=== PATIENT | female | born 1955 | race Caucasian/White ===

== ENCOUNTER 2022-12-14 17:43 | Emergency (ER) | payer MEDICARE ==
[~2022-12-14] VITALS: Ht 162.6 cm; Wt 41.7 kg
[2022-12-14 18:06] VITALS: BP 148/71
--- NOTE | 2022-12-14 18:37 | PCM.EKG ---
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
[2022-12-14 18:51] LABS: BASOPHIL # 0.1 10^3/uL (0.0-0.1); BASOPHIL % 0.6 % (0.0-0.2); EOSINOPHIL # 0.2 10^3/uL (0.0-0.2); EOSINOPHIL % 1.9 % (0.0-5.0); LYMPHOCYTES # 1.58 10^3/uL1 (1.0-4.8); MEAN CORP HGB 21.3 pg (26-34); MONOCYTES # 0.9 10^3/uL (0.3-0.8); MONOCYTES % 8.8 % (5.0-12.0); NEUTROPHIL # 7.1 10^3/uL (1.8-7.7); NEUTROPHILS % 72.5 % (41.0-85.0); PLATELET COUNT 506 10^3/uL (150-400); RED CELL DISTRIBUTION WIDTH 20.9 % (11.5-14.5)
--- NOTE | 2022-12-14 18:52 | ER.PDOC ---
General Chief Complaint: Medical Clearance Stated Complaint: MEDICAL CLEARANCE Time seen by MD: 18:49 Source: patient Exam Limitations: no limitations History of Present Illness Initial Comments Medical clearance for inpatient psychiatric treatment for suicidal ideation. Patient had a plan yesterday but none today. This has been going on for several months. Intent: Prior thoughts of suicide Severity: moderate Associated Symptoms: Depressed, Suicidal Thoughts Allergies: Coded Allergies: Sulfa (Sulfonamide Antibiotics) (Verified Allergy, Unknown, 12/14/22) prochlorperazine (Verified Allergy, Unknown, 12/14/22) Past Medical History Medical History: thyroid disease, other Surgical History: appendectomy, back, hysterectomy Family History Significant Family History: no pertinent family hx Social History Smoking: non-smoker Alcohol Use: none Drug Use: marijuana Review of Systems Constitutional: no symptoms reported EENTM: no symptoms reported Respiratory: no symptoms reported Cardiovascular: no symptoms reported Gastrointestinal: no symptoms reported Psychiatric/Neurological: see HPI All Other Systems: Reviewed and Negative Physical Exam General Appearance: No acute distress, Alert Neck: Non-Tender, Full Range of Motion, Supple, Normal Inspection Respiratory: chest non-tender, lungs clear, normal breath sounds, no respiratory distress, no accessory muscle use Cardiovascular: Normal Peripheral Pulses, Regular Rate, Rhythm, No Edema, No Gallop, No JVD, No Murmur Gastrointestinal: Normal Bowel Sounds, No Organomegaly, No Pulsatile Mass, Non Tender, Soft Extremities: Non-Tender, Normal Range of Motion, No Evidence of Trauma, No Edema Neurological/Psychiatric: Alert, Calm, 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-XII NML as Tested, Depressed Affect Appearance/Memory/Insight: Appropriate Appearance, Appropriate Insight, Neat, No Memory Impairment Behavior/Eye Contact/Speech: Cooperative, Good Eye Contact, Normal Speech Thoughts/Hallucinations: Normal Thought Pattern, No Apparent Hallucination Skin: Normal Color, Warm/Dry Results/Orders Results/Orders Orders - FORTUNATO SRIVASTAVA MD Cbc With Auto Diff (12/14/22 18:35) Comprehensive Metabolic Panel (12/14/22 18:35) Urinalysis (12/14/22 18:35) Drug Scrn Med W Confirmation (12/14/22 18:35) Alcohol(Ml) (12/14/22 18:35) Acetaminophen(Ml) (12/14/22 18:35) Salicylate(Ml) (12/14/22 18:35) EKG (12/14/22 18:35) Potassium Chloride (Klor-Con 10) (12/14/22 21:04) Tramadol Hcl (Ultram) (12/14/22 21:11) Tramadol Hcl (Ultram) (12/14/22 21:18) Vital Signs Date Time Temp Pulse Resp B/P (MAP) Pulse Ox O2 Delivery O2 Flow Rate FiO2 12/15/22 06:50 97.9 82 20 152/77 (102) 100 Room Air* 0 21 12/15/22 05:38 98.1 83 20 152/78 (102) 100 Room Air* 0 21 12/15/22 01:41 98.1 82 22 150/76 (100) 100 Room Air* 0 21 12/14/22 22:30 98.0 100 20 139/76 (97) 97 Room Air* 0 21 12/14/22 18:06 98.0 100 22 97 12/14/22 18:06 98.0 100 22 12/14/22 18:06 98.0 100 22 148/71 (96) 97 Room Air* 0 21 Administered Medications Medications (Trade) Dose Ordered Sig/[place] Route PRN Reason Start Time Stop Time Status Last Admin Dose Admin Potassium Chloride (Klor-Con 10) 40 meq STAT STAT PO 12/14/22 21:04 12/14/22 21:05 UNV 12/14/22 21:18 40 MEQ Tramadol HCl (Ultram) 50 mg STAT STAT PO 12/14/22 21:11 12/14/22 21:12 DC 12/14/22 21:18 50 MG Laboratory Tests Test 12/14/22 00:00 12/14/22 18:46 Urine Collection Type PEDI BAG Urine Color YELLOW Urine Appearance CLOUDY Urine Bilirubin NEGATIVE (NEGATIVE) Urine Ketones NEGATIVE (NEGATIVE) Urine Specific [place] 1.015 (1.005-1.030) Urine pH 7.0 (4.5-8.0) Urine Protein 1+ (NEGATIVE) H Urine Urobilinogen 0.2 E.U./dL (0.2) Urine Nitrate NEGATIVE (NEGATIVE) Urine Leukocyte Esterase 1+ (NEGATIVE) H Urine Glucose (Auto)(UA) NEGATIVE (NEGATIVE) Urine Blood 2+ (NEGATIVE) H Urine Opiates Screen PRESUMPTIVE POSITIVE Urine Methadone Screen PRESUMPTIVE POSITIVE Urine Barbiturates Screen NEGATIVE (c/o200ng/mL) Urine Phencyclidine Screen NEGATIVE (c/o 25ng/mL) Ur Amphetamine/Methamphetamine NEGATIVE (mo9228bc/mL) Urine MDMA Screen (Ecstasy) NEGATIVE (c/o300ng/mL) Urine Benzodiazepines Screen NEGATIVE (c/o200ng/mL) Urine Cocaine Metabolite Screen NEGATIVE (c/o300ng/mL) Ur Tetrahydrocannabinol (THC) Scrn PRESUMPTIVE POSITIVE (c/o White Blood Count 9.9 10^3/uL (4.5-11.0) Red Blood Count 4.60 10^6/uL (4.00-5.20) Hemoglobin 9.8 g/dL (12.0-15.0) L Hematocrit 32.7 % (36.0-46.0) L Mean Corpuscular Volume 71.1 fL (78-100) L Mean Corpuscular Hemoglobin 21.3 pg (26-34) L Mean Corpuscular Hemoglobin Concent 30.0 g/dL (33-36.5) L Red Cell Distribution Width 20.9 % (11.5-14.5) H Platelet Count 506 10^3/uL (150-400) H Mean Platelet Volume 8.0 fL (7.8-11.0) Neutrophils (%) (Auto) 72.5 % (41.0-85.0) Lymphocytes (%) (Auto) 16.0 % (24.0-44.0) L Monocytes (%) (Auto) 8.8 % (5.0-12.0) Neutrophils # (Auto) 7.1 10^3/uL (1.8-7.7) Lymphocytes # (Auto) 1.58 10^3/uL1 (1.0-4.8) Monocytes # (Auto) 0.9 10^3/uL (0.3-0.8) H Absolute Immature Granulocyte (auto 0.02 10^3 u/L (0-2) Absolute Eosinophils (auto) 0.2 10^3/uL (0.0-0.2) Immature Granulocytes % 0.20 % (0.00-0.50) Eosinophils % 1.9 % (0.0-5.0) Basophils % 0.6 % (0.0-0.2) H Basophils # 0.1 10^3/uL (0.0-0.1) Sodium Level 138 mmol/L (132-145) Potassium Level 3.1 mmol/L (3.6-5.2) L Chloride Level 99.0 mmol/L (96-109) Carbon Dioxide Level 25.7 mmol/L (20.0-32) Anion Gap 16.4 Blood Urea Nitrogen 20 mg/dL (7-18) H Creatinine 1.62 mg/dL (0.59-1.40) H Estimated GFR () 38.1 (>/=60) Est GFR (CKD-EPI)(Non-Afr Croatian) 31.5 (>/=60) BUN/Creatinine Ratio 12.0 (10.0-20.0) Glucose Level 107 mg/dL (74-106) H Calcium Level 9.6 mg/dL (8.4-10.5) Total Bilirubin 0.2 mg/dL (0.2-1.0) Aspartate Amino Transferase (AST) 13 U/L (0-35) Alanine Aminotransferase (ALT) 12 U/L (12-78) Alkaline Phosphatase 100 U/L (50-136) Total Protein 7.9 g/dL (6.4-8.2) Albumin 3.6 g/dL (3.4-5.0) Globulin 4.3 Albumin/Globulin Ratio 0.837 Salicylates Level 6.4 mg/dL (2.8-20.0) Acetaminophen Level < 2 ug/mL (10-30) L Serum Alcohol < 3 mg/dL (<10) Progress Progress UDS positive for methadone, opiates and THC. WBC 9.9 and hemoglobin 9.8. Alcohol less than 3, potassium 3.1, glucose 107, BUN 20, creatinine 1.62, rest of chemistry is unremarkable. Acetaminophen less than 2 and salicylate 6.4. Patient received potassium 40 mEq by mouth. EKG/XRAY/CT/US EKG: NSR, LVH EKG Comments: HR 110, sinus tachycardia ER DEPART Departure Time of Disposition: 21:24 Disposition: [facility] Impression: Primary Impression: Suicidal ideation Condition: Stable Referrals: BJ BARAAJS MD (PCP) PRIMARY CARE PROVIDER Comments Patient medically cleared to go for inpatient psychiatric treatment. Patient accepted by Dr. Leyva at [facility] in [place]. Duration or Time Spent with Pa: 2 hours FORTUNATO SRIVASTAVA MD Dec 14, 2022 18:52
[2022-12-14 19:10] LABS: CARBON DIOXIDE 25.7 mmol/L (20.0-32); GLUCOSE 107 mg/dL (74-106)
[2022-12-14 19:57] LABS: BILIRUBIN,URINE NEGATIVE (NEGATIVE); UROBILINOGEN,URINE 0.2 E.U./dL (0.2)
[2022-12-14] MEDS ORDERED: KLOR-CON 10 PO STA (21:04)
[2022-12-14] MEDS ORDERED: ULTRAM PO STA (21:11)
[2022-12-14] MEDS ORDERED: KLOR-CON 10 PO ONE (21:17)
[2022-12-14] MEDS ORDERED: ULTRAM ONE (21:18)
--- NOTE | 2022-12-14 21:56 | NUR ---
REFERRAL TO [facility] FAXED PT INFO TO [facility]
[2022-12-14 22:30] VITALS: BP 139/76
--- NOTE | 2022-12-14 23:00 | NUR ---
tpc returned call for eval.
--- NOTE | 2022-12-14 23:31 | NUR ---
tpc recomends inpatient treatment
[2022-12-15 01:41] VITALS: BP 150/76
--- NOTE | 2022-12-15 04:03 | NUR ---
TRANSFER UPDATE: [facility] DECLINED PT. STATES "DECLINED BY PROVIDER. NO REASON GIVEN."
--- NOTE | 2022-12-15 05:30 | NUR ---
[facility] PT INFORMATION FAXED TO [facility] IN [place]
[2022-12-15 05:38] VITALS: BP 152/78
--- NOTE | 2022-12-15 05:57 | NUR ---
[facility] RN FROM [facility] CALLED AND STATED PT IS ACCEPTED FOR PSYCHIATRIC PENDING MD TO ACCEPT HER MEDICALLY. STATES WILL CALL BACK AND UPDATE IF PT IS ACCEPTED.
--- NOTE | 2022-12-15 06:25 | NUR ---
TRANSFER ACCEPTANCE RECEIVED ACCEPTANCE TO [facility] AT THIS TIME. STATES THEY ARE FAXING A VOLUNTARY FORM TO US AT THIS TIME. ACCEPTING PHYSICIAN DR CANDELARIO. REPORT NUMBER [phone].
[2022-12-15 06:50] VITALS: BP 152/77
--- NOTE | 2022-12-15 08:51 | NUR ---
[facility] PTS RIDE TO [facility] CAN NOT TRANSPORT HER NOW. CALLED [facility] FOR A RIDE AND THEY WILL BE HEADING THIS WAY.
--- NOTE | 2022-12-15 11:28 | NUR ---
[facility] HERE FOR TRANSPORT
== END 2022-12-15 11:27 ==
LOC: ER 17:43
DX: R45.851 Suicidal ideations (principal); E07.9 Disorder of thyroid, unspecified; F12.90 Cannabis use, unspecified, uncomplicated; Z90.49 Acquired absence of other specified parts of digestive tract; Z90.710 Acquired absence of both cervix and uterus; Z88.2 Allergy status to sulfonamides
CPT/HCPCS: 99285; 80053; 85025; 36415; 80307; 80299 ×2; 82077; 93005; 81001; J3490